=== PATIENT | male | born 1975 | race Caucasian/White ===

== ENCOUNTER 2017-10-19 17:13 | Emergency (ER) | payer OTHER ==
[~2017-10-19] VITALS: Ht 177.8 cm; Wt 86.6 kg
[2017-10-19] MEDS ORDERED: NORCO 5-325 TA1 EACH PO (19:04)
[2017-10-19] MEDS ORDERED: Motrin,Rufen800 MG PO (19:04)
== END 2017-10-19 19:05 | disposition home or self-care (01) ==
LOC: ED 17:13
DX: S80.11XA Contusion of right lower leg, initial encounter (principal); Z88.1 Allergy status to other antibiotic agents; W01.0XXA Fall on same level from slipping, tripping and stumbling without subsequent striking against object, initial encounter; Y93.89 Activity, other specified; Y92.812 Truck as the place of occurrence of the external cause; Y99.8 Other external cause status